=== PATIENT | female | born 1965 | race Caucasian/White ===

== ENCOUNTER 2022-02-21 09:10 | Inpatient (IN) ==
[2022-02-21 09:58] LABS: Basophils % 0.4 %; Eosinophils % 0.4 %; Hematocrit 43.2 % (35.3-44.9); Hemoglobin 14.1 g/dL (11.5-15.4); Immature Granulocytes % 0.7 % (0-4); Lymphocytes % 17.6 %; Mean Corpuscular HGB Conc 32.6 g/dL (31.6-35.5); Mean Corpuscular Hemoglobin 28.3 pg (28.0-33.3); Mean Corpuscular Volume 86.7 fL (83.0-100.0); Mean Platelet Volume 9.9 fL (9.4-12.4); Monocytes # 0.5 K/mcL (0.0-1.3); Monocytes % 9.1 %; Neutrophils # 3.9 K/mcL (1.6-8.9); Platelet Count 177 K/mcL (140-400); Red Blood Count 4.98 M/mcL (3.82-4.97); Red Cell Distribution Width 13.6 % (11.5-14.5); Segmented Neutrophils % 71.8 %; White Blood Count 5.4 K/mcL (4.3-11.1)
[2022-02-21 10:14] LABS: Alanine Aminotransferase 31 Units/L (7-52); Albumin 3.7 g/dL (3.5-5.7); Albumin/Globulin Ratio 1.2 (1.1-2.2); Alkaline Phosphatase 63 Units/L (34-104); Aspartate Amino Transferase 19 Units/L (13-39); BUN/Creatinine Ratio 24 (6-26); Bilirubin,Total 0.4 mg/dL (0.3-1.0); Blood Urea Nitrogen 14 mg/dL (6-20); Calcium 8.3 mg/dL (8.6-10.3); Carbon Dioxide 35 mEq/L (23-29); Chloride 98 mEq/L (98-107); Glucose 125 mg/dL (70-105); Osmolality,Calculated 292 (280-300); Potassium 3.8 mEq/L (3.5-5.1); Sodium 140 mEq/L (136-145); Total Protein 6.7 g/dL (6.4-8.9); eGFR For African Americans > 60 (> 60); eGFR For Non-African Americans > 60 (> 60)
[2022-02-21] MEDS ORDERED: Ondansetron 4 MG/2 ML VIAL IVP PRN (11:43)
[2022-02-21] MEDS ORDERED: Naloxone 0.4 MG/ML INJ IVP PRN (11:43)
[2022-02-21] MEDS ORDERED: SUMATRIPTAN 20 MG NS PRN (11:48)
[2022-02-21] MEDS ORDERED: clonazePAM 1 MG TABLET PO PRN (11:48)
[2022-02-21] MEDS: Ipratropium 1 PUFF INHALER IH SCH ×3 (13:31→20:47)
[2022-02-21] MEDS ORDERED: *HR* Dextrose 50 % in Water (Syg) 50 ML SYRINGE IVP PRN (13:36)
[2022-02-21] MEDS ORDERED: D5% in Water 1,000 ML IVC PRN (13:36)
[2022-02-21] MEDS ORDERED: Dextrose Gel 15 GM/37.5 ML TUBE PO PRN ×2 (13:36)
[2022-02-21] MEDS: Dexamethasone Sodium Phos/PF 10 MG/ML VIAL IVP SCH (14:51)
[2022-02-21] MEDS: Gabapentin 300 MG CAPSULE PO SCH ×2 (14:52→21:05)
[2022-02-21] MEDS: Nicotine 21 MG PATCH.TD24 TD SCH (14:52)
[2022-02-21] MEDS: Loxapine Succinate [Loxapine] 25 MG Capsule PO SCH ×2 (14:52→21:05)
[2022-02-21] MEDS: Acetaminophen 325 MG TABLET PO PRN (16:33)
[2022-02-21] MEDS: Insulin LISPRO 300 UNITS/3 ML VIAL SUBQ SCH ×2 (16:34→21:21)
[2022-02-21] MEDS ORDERED: QUEtiapine Fumarate 300 MG TABLET PO SCH (21:00)
[2022-02-21] MEDS: traZODone 50 MG TABLET PO SCH (21:05)
[2022-02-21] MEDS: QUEtiapine Fumarate 100 MG TABLET PO SCH (21:05)
[2022-02-21] MEDS: Menthol 1 EACH LOZENGE PO PRN (23:43)
[2022-02-22] MEDS: Ipratropium 1 PUFF INHALER IH SCH ×6 (00:41→20:41)
[2022-02-22 05:50] LABS: Hematocrit 43.4 % (35.3-44.9); Hemoglobin 13.8 g/dL (11.5-15.4); Mean Corpuscular HGB Conc 31.8 g/dL (31.6-35.5); Mean Corpuscular Hemoglobin 28.1 pg (28.0-33.3); Mean Corpuscular Volume 88.4 fL (83.0-100.0); Mean Platelet Volume 10.1 fL (9.4-12.4); Platelet Count 219 K/mcL (140-400); Red Blood Count 4.91 M/mcL (3.82-4.97); Red Cell Distribution Width 13.4 % (11.5-14.5); White Blood Count 3.2 K/mcL (4.3-11.1)
[2022-02-22 06:08] LABS: BUN/Creatinine Ratio 22 (6-26); Blood Urea Nitrogen 13 mg/dL (6-20); Calcium 8.7 mg/dL (8.6-10.3); Carbon Dioxide 36 mEq/L (23-29); Chloride 99 mEq/L (98-107); Glucose 164 mg/dL (70-105); Magnesium 1.9 mg/dL (1.6-2.6); Osmolality,Calculated 294 (280-300); Potassium 4.1 mEq/L (3.5-5.1); Sodium 140 mEq/L (136-145); eGFR For African Americans > 60 (> 60); eGFR For Non-African Americans > 60 (> 60)
[2022-02-22] MEDS: Gabapentin 300 MG CAPSULE PO SCH ×3 (08:07→19:44)
[2022-02-22] MEDS: Nicotine 21 MG PATCH.TD24 TD SCH (08:08)
[2022-02-22] MEDS: Dexamethasone Sodium Phos/PF 10 MG/ML VIAL IVP SCH (08:09)
[2022-02-22] MEDS: Loxapine Succinate [Loxapine] 25 MG Capsule PO SCH ×3 (08:18→19:45)
[2022-02-22] MEDS: Furosemide 20 MG TABLET PO SCH (08:33)
[2022-02-22] MEDS: Insulin LISPRO 300 UNITS/3 ML VIAL SUBQ SCH ×4 (08:35→22:16)
[2022-02-22] MEDS: Budesonide/Formoterol 80/4.5 1 PUFF INH IH SCH ×2 (09:48→20:43)
[2022-02-22] MEDS: Tiotropium 10 INH DOSE IH SCH (09:48)
[2022-02-22] MEDS ORDERED: clonazePAM 0.5 MG TABLET PO PRN (10:15)
[2022-02-22] MEDS ORDERED: Remdesivir 200 MG in 0.9 % Sodium Chloride 100 ML IVPB ONE (15:13)
[2022-02-22] MEDS ORDERED: hydrOXYzine pamoate 25 MG CAPSULE PO PRN (15:18)
[2022-02-22] MEDS: *HR* Rivaroxaban 10 MG TABLET PO SCH (16:27)
[2022-02-22] MEDS: QUEtiapine Fumarate 100 MG TABLET PO SCH (19:44)
[2022-02-22] MEDS: traZODone 50 MG TABLET PO SCH (19:44)
[2022-02-22] MEDS: risperiDONE 1 MG TABLET PO SCH (22:17)
[2022-02-23] MEDS: Ipratropium 1 PUFF INHALER IH SCH ×5 (00:14→20:49)
[2022-02-23] MEDS: Benzonatate 100 MG CAPSULE PO PRN ×2 (02:14→13:24)
[2022-02-23] MEDS: Menthol 1 EACH LOZENGE PO PRN (02:14)
[2022-02-23 07:52] LABS: Basophils % 0.7 %; Eosinophils % 0.2 %; Hematocrit 44.1 % (35.3-44.9); Immature Granulocytes % 0.7 % (0-4); Lymphocytes # 1.4 K/mcL (0.6-4.6); Lymphocytes % 24.3 %; Mean Corpuscular HGB Conc 31.7 g/dL (31.6-35.5); Mean Corpuscular Hemoglobin 27.9 pg (28.0-33.3); Mean Platelet Volume 9.5 fL (9.4-12.4); Monocytes # 0.8 K/mcL (0.0-1.3); Monocytes % 13.1 %; Neutrophils # 3.5 K/mcL (1.6-8.9); Platelet Count 251 K/mcL (140-400); Red Blood Count 5.01 M/mcL (3.82-4.97); Red Cell Distribution Width 13.6 % (11.5-14.5); White Blood Count 5.7 K/mcL (4.3-11.1)
[2022-02-23] MEDS: Budesonide/Formoterol 80/4.5 1 PUFF INH IH SCH ×3 (08:26→20:49)
[2022-02-23 08:31] LABS: Alanine Aminotransferase 46 Units/L (7-52); Albumin 3.8 g/dL (3.5-5.7); Albumin/Globulin Ratio 1.2 (1.1-2.2); Alkaline Phosphatase 59 Units/L (34-104); Aspartate Amino Transferase 38 Units/L (13-39); BUN/Creatinine Ratio 21 (6-26); Bilirubin,Total 0.3 mg/dL (0.3-1.0); Blood Urea Nitrogen 12 mg/dL (6-20); Calcium 8.7 mg/dL (8.6-10.3); Carbon Dioxide 35 mEq/L (23-29); Chloride 99 mEq/L (98-107); Globulin 3.1 g/dL (2.4-3.5); Glucose 117 mg/dL (70-105); Osmolality,Calculated 291 (280-300); Potassium 3.5 mEq/L (3.5-5.1); Sodium 140 mEq/L (136-145); Total Protein 6.9 g/dL (6.4-8.9); eGFR For African Americans > 60 (> 60); eGFR For Non-African Americans > 60 (> 60)
[2022-02-23] MEDS: Tiotropium 10 INH DOSE IH SCH (08:31)
[2022-02-23 08:32] LABS: Albumin 3.8 g/dL (3.5-5.7); Albumin/Globulin Ratio 1.2 (1.1-2.2); Bilirubin,Indirect 0.2 mg/dL (0.0-1.0); Bilirubin,Total 0.2 mg/dL (0.3-1.0); Globulin 3.1 g/dL (2.4-3.5); Total Protein 6.9 g/dL (6.4-8.9)
[2022-02-23] MEDS: Gabapentin 300 MG CAPSULE PO SCH ×3 (09:17→20:46)
[2022-02-23] MEDS: Furosemide 20 MG TABLET PO SCH (09:18)
[2022-02-23] MEDS: Nicotine 21 MG PATCH.TD24 TD SCH (09:18)
[2022-02-23] MEDS: Dexamethasone Sodium Phos/PF 10 MG/ML VIAL IVP SCH (09:19)
[2022-02-23] MEDS: Insulin LISPRO 300 UNITS/3 ML VIAL SUBQ SCH ×4 (09:20→20:45)
[2022-02-23] MEDS: Loxapine Succinate [Loxapine] 25 MG Capsule PO SCH ×3 (09:21→20:46)
[2022-02-23] MEDS: Acetaminophen 325 MG TABLET PO PRN (13:10)
[2022-02-23] MEDS ORDERED: Furosemide 20 MG/2 ML VIAL IVP ONE (14:00)
[2022-02-23 15:52] LABS: C-Reactive Protein 5 mg/L (Less than 10)
[2022-02-23] MEDS: *HR* Rivaroxaban 10 MG TABLET PO SCH (17:11)
[2022-02-23] MEDS: Remdesivir 100 MG in 0.9 % Sodium Chloride 100 ML IVPB SCH (17:11)
[2022-02-23] MEDS: QUEtiapine Fumarate 100 MG TABLET PO SCH (20:46)
[2022-02-23] MEDS: risperiDONE 1 MG TABLET PO SCH (20:46)
[2022-02-23] MEDS: traZODone 50 MG TABLET PO SCH (20:46)
[2022-02-24] MEDS: Ipratropium 1 PUFF INHALER IH SCH ×6 (00:21→20:59)
[2022-02-24] MEDS: Budesonide/Formoterol 80/4.5 1 PUFF INH IH SCH ×2 (08:50→20:59)
[2022-02-24 09:18] LABS: Hemoglobin 14.2 g/dL (11.5-15.4); Mean Corpuscular HGB Conc 31.6 g/dL (31.6-35.5); Mean Corpuscular Hemoglobin 27.7 pg (28.0-33.3); Mean Corpuscular Volume 87.7 fL (83.0-100.0); Mean Platelet Volume 9.3 fL (9.4-12.4); Platelet Count 257 K/mcL (140-400); Red Blood Count 5.13 M/mcL (3.82-4.97); Red Cell Distribution Width 13.5 % (11.5-14.5); White Blood Count 4.5 K/mcL (4.3-11.1)
[2022-02-24] MEDS: Tiotropium 10 INH DOSE IH SCH (09:29)
[2022-02-24 09:42] LABS: Albumin 3.8 g/dL (3.5-5.7); Albumin/Globulin Ratio 1.2 (1.1-2.2); Bilirubin,Direct 0.1 mg/dL (0.0-0.2); Bilirubin,Indirect 0.3 mg/dL (0.0-1.0); Bilirubin,Total 0.4 mg/dL (0.3-1.0); Globulin 3.3 g/dL (2.4-3.5); Total Protein 7.1 g/dL (6.4-8.9)
[2022-02-24 09:42] LABS: BUN/Creatinine Ratio 22 (6-26); Blood Urea Nitrogen 13 mg/dL (6-20); Calcium 8.7 mg/dL (8.6-10.3); Carbon Dioxide 35 mEq/L (23-29); Chloride 98 mEq/L (98-107); Glucose 156 mg/dL (70-105); Osmolality,Calculated 293 (280-300); Potassium 3.5 mEq/L (3.5-5.1); Sodium 140 mEq/L (136-145); eGFR For African Americans > 60 (> 60); eGFR For Non-African Americans > 60 (> 60)
[2022-02-24] MEDS: Dexamethasone Sodium Phos/PF 10 MG/ML VIAL IVP SCH (10:21)
[2022-02-24] MEDS: Nicotine 21 MG PATCH.TD24 TD SCH (10:22)
[2022-02-24] MEDS: Menthol 1 EACH LOZENGE PO PRN ×3 (10:22→20:57)
[2022-02-24] MEDS: Insulin LISPRO 300 UNITS/3 ML VIAL SUBQ SCH ×4 (10:22→20:58)
[2022-02-24] MEDS: Gabapentin 300 MG CAPSULE PO SCH ×3 (10:23→20:51)
[2022-02-24] MEDS: Furosemide 20 MG TABLET PO SCH (10:23)
[2022-02-24] MEDS: Loxapine Succinate [Loxapine] 25 MG Capsule PO SCH ×3 (10:23→20:57)
[2022-02-24] MEDS: Benzonatate 100 MG CAPSULE PO PRN ×2 (10:23→20:50)
[2022-02-24] MEDS: Acetaminophen 325 MG TABLET PO PRN (10:24)
[2022-02-24] MEDS: Remdesivir 100 MG in 0.9 % Sodium Chloride 100 ML IVPB SCH (15:21)
[2022-02-24] MEDS: *HR* Rivaroxaban 10 MG TABLET PO SCH (16:32)
[2022-02-24] MEDS: QUEtiapine Fumarate 100 MG TABLET PO SCH (20:48)
[2022-02-24] MEDS: traZODone 50 MG TABLET PO SCH (20:52)
[2022-02-24] MEDS: risperiDONE 1 MG TABLET PO SCH (20:54)
[2022-02-25] MEDS: Ipratropium 1 PUFF INHALER IH SCH ×6 (00:58→20:36)
[2022-02-25] MEDS: Budesonide/Formoterol 80/4.5 1 PUFF INH IH SCH ×2 (09:00→20:36)
[2022-02-25] MEDS: Tiotropium 10 INH DOSE IH SCH (09:00)
[2022-02-25 09:08] LABS: Basophils % 0.6 %; Eosinophils % 0.2 %; Hematocrit 42.2 % (35.3-44.9); Hematocrit 42.3 % (35.3-44.9); Hemoglobin 13.5 g/dL (11.5-15.4); Hemoglobin 13.6 g/dL (11.5-15.4); Immature Granulocytes % 0.9 % (0-4); Lymphocytes # 1.6 K/mcL (0.6-4.6); Lymphocytes % 29.3 %; Mean Corpuscular HGB Conc 31.9 g/dL (31.6-35.5); Mean Corpuscular HGB Conc 32.2 g/dL (31.6-35.5); Mean Corpuscular Hemoglobin 27.7 pg (28.0-33.3); Mean Corpuscular Volume 86.7 fL (83.0-100.0); Mean Platelet Volume 9.3 fL (9.4-12.4); Mean Platelet Volume 9.4 fL (9.4-12.4); Monocytes # 0.7 K/mcL (0.0-1.3); Monocytes % 12.9 %; Platelet Count 249 K/mcL (140-400); Platelet Count 252 K/mcL (140-400); Red Blood Count 4.85 M/mcL (3.82-4.97); Red Blood Count 4.88 M/mcL (3.82-4.97); Red Cell Distribution Width 13.5 % (11.5-14.5); Segmented Neutrophils % 56.1 %; White Blood Count 5.4 K/mcL (4.3-11.1)
[2022-02-25 09:23] LABS: BUN/Creatinine Ratio 27 (6-26); Blood Urea Nitrogen 17 mg/dL (6-20); Calcium 8.3 mg/dL (8.6-10.3); Carbon Dioxide 33 mEq/L (23-29); Chloride 98 mEq/L (98-107); Glucose 256 mg/dL (70-105); Osmolality,Calculated 296 (280-300); Potassium 3.6 mEq/L (3.5-5.1); Sodium 138 mEq/L (136-145); eGFR For African Americans > 60 (> 60); eGFR For Non-African Americans > 60 (> 60)
[2022-02-25 10:08] LABS: Platelet Estimate Normal (Normal)
[2022-02-25] MEDS ORDERED: Nystatin POWDER 30 GM BOTTLE TP PRN (10:15)
[2022-02-25 10:21] LABS: Albumin 3.5 g/dL (3.5-5.7); Albumin/Globulin Ratio 1.2 (1.1-2.2); Bilirubin,Indirect 0.3 mg/dL (0.0-1.0); Bilirubin,Total 0.3 mg/dL (0.3-1.0); Globulin 2.9 g/dL (2.4-3.5); Total Protein 6.4 g/dL (6.4-8.9)
[2022-02-25] MEDS: ATOGEPANT PO SCH (11:10)
[2022-02-25] MEDS: AUSTEDO 9 MG PO SCH ×2 (11:10→21:03)
[2022-02-25] MEDS: Nicotine 21 MG PATCH.TD24 TD SCH (11:11)
[2022-02-25] MEDS: Benzonatate 100 MG CAPSULE PO PRN (11:11)
[2022-02-25] MEDS: Dexamethasone Sodium Phos/PF 10 MG/ML VIAL IVP SCH (11:11)
[2022-02-25] MEDS: Menthol 1 EACH LOZENGE PO PRN ×2 (11:11→21:03)
[2022-02-25] MEDS: Gabapentin 300 MG CAPSULE PO SCH ×3 (11:11→21:01)
[2022-02-25] MEDS: Loxapine Succinate [Loxapine] 25 MG Capsule PO SCH ×3 (11:12→21:03)
[2022-02-25] MEDS: Furosemide 20 MG TABLET PO SCH (11:12)
[2022-02-25] MEDS: Insulin LISPRO 300 UNITS/3 ML VIAL SUBQ SCH ×3 (11:13→17:14)
[2022-02-25] MEDS: Remdesivir 100 MG in 0.9 % Sodium Chloride 100 ML IVPB SCH (15:57)
[2022-02-25] MEDS: *HR* Rivaroxaban 10 MG TABLET PO SCH (17:13)
[2022-02-25] MEDS: traZODone 50 MG TABLET PO SCH (21:01)
[2022-02-25] MEDS: QUEtiapine Fumarate 100 MG TABLET PO SCH (21:01)
[2022-02-25] MEDS: risperiDONE 1 MG TABLET PO SCH (21:02)
[2022-02-25] MEDS ORDERED: Insulin DETEMIR 100 UNIT/ML per UNIT SUBQ SCH (21:58)
[2022-02-25] MEDS ORDERED: Insulin LISPRO 300 UNITS/3 ML VIAL SUBQ SCH ×2 (21:59→23:15)
[2022-02-26] MEDS: Ipratropium 1 PUFF INHALER IH SCH ×5 (00:34→14:40)
[2022-02-26] MEDS: Insulin LISPRO 300 UNITS/3 ML VIAL SUBQ SCH ×4 (00:40→17:30)
[2022-02-26] MEDS: Budesonide/Formoterol 80/4.5 1 PUFF INH IH SCH (08:37)
[2022-02-26 08:59] LABS: Hematocrit 42.9 % (35.3-44.9); Hemoglobin 13.8 g/dL (11.5-15.4); Mean Corpuscular HGB Conc 32.2 g/dL (31.6-35.5); Mean Corpuscular Hemoglobin 27.8 pg (28.0-33.3); Mean Corpuscular Volume 86.3 fL (83.0-100.0); Mean Platelet Volume 9.1 fL (9.4-12.4); Platelet Count 266 K/mcL (140-400); Red Blood Count 4.97 M/mcL (3.82-4.97); Red Cell Distribution Width 13.6 % (11.5-14.5); White Blood Count 7.3 K/mcL (4.3-11.1)
[2022-02-26 09:00] LABS: Basophils % 0.3 %; Eosinophils % 0.3 %; Hemoglobin 13.8 g/dL (11.5-15.4); Immature Granulocytes % 0.7 % (0-4); Lymphocytes # 1.6 K/mcL (0.6-4.6); Lymphocytes % 21.5 %; Mean Corpuscular HGB Conc 32.1 g/dL (31.6-35.5); Mean Corpuscular Hemoglobin 27.7 pg (28.0-33.3); Mean Corpuscular Volume 86.2 fL (83.0-100.0); Mean Platelet Volume 9.3 fL (9.4-12.4); Monocytes # 0.8 K/mcL (0.0-1.3); Monocytes % 10.3 %; Neutrophils # 4.9 K/mcL (1.6-8.9); Platelet Count 268 K/mcL (140-400); Red Blood Count 4.99 M/mcL (3.82-4.97); Red Cell Distribution Width 13.5 % (11.5-14.5); Segmented Neutrophils % 66.9 %; White Blood Count 7.3 K/mcL (4.3-11.1)
[2022-02-26 09:16] LABS: Platelet Estimate Normal (Normal)
[2022-02-26 09:17] LABS: Albumin 3.6 g/dL (3.5-5.7); Albumin/Globulin Ratio 1.2 (1.1-2.2); BUN/Creatinine Ratio 27 (6-26); Bilirubin,Direct 0.1 mg/dL (0.0-0.2); Bilirubin,Indirect 0.2 mg/dL (0.0-1.0); Bilirubin,Total 0.3 mg/dL (0.3-1.0); Blood Urea Nitrogen 17 mg/dL (6-20); Calcium 8.5 mg/dL (8.6-10.3); Carbon Dioxide 33 mEq/L (23-29); Chloride 99 mEq/L (98-107); Glucose 260 mg/dL (70-105); Osmolality,Calculated 299 (280-300); Potassium 3.7 mEq/L (3.5-5.1); Sodium 139 mEq/L (136-145); Total Protein 6.6 g/dL (6.4-8.9); eGFR For African Americans > 60 (> 60); eGFR For Non-African Americans > 60 (> 60)
[2022-02-26] MEDS: Benzonatate 100 MG CAPSULE PO PRN (11:04)
[2022-02-26] MEDS: Gabapentin 300 MG CAPSULE PO SCH ×2 (11:04→15:46)
[2022-02-26] MEDS: Nicotine 21 MG PATCH.TD24 TD SCH (11:06)
[2022-02-26] MEDS: Dexamethasone Sodium Phos/PF 10 MG/ML VIAL IVP SCH (11:06)
[2022-02-26] MEDS: Menthol 1 EACH LOZENGE PO PRN (11:06)
[2022-02-26] MEDS: Furosemide 20 MG TABLET PO SCH (11:07)
[2022-02-26] MEDS: ATOGEPANT PO SCH (11:10)
[2022-02-26] MEDS: AUSTEDO 9 MG PO SCH (11:10)
[2022-02-26] MEDS: Loxapine Succinate [Loxapine] 25 MG Capsule PO SCH ×2 (11:10→15:46)
[2022-02-26] MEDS: Remdesivir 100 MG in 0.9 % Sodium Chloride 100 ML IVPB SCH (15:46)
[2022-02-26 16:17] VITALS: BP 97/54; PULSE 72; RESP 20; TEMP 98.1; O2SAT 93
[2022-02-26] MEDS: *HR* Rivaroxaban 10 MG TABLET PO SCH (17:29)
== END 2022-02-26 18:10 | disposition home health service (06) | DRG 177 ==
LOC: INPPIK 09:10 → EMEROOPIK 09:10 → INPPIK 13:33
PROVIDERS: ADMIT Family Medicine; ATTEND Family Medicine